=== PATIENT | female | born 1995 | race Caucasian/White ===

== ENCOUNTER 2017-02-26 20:56 | Emergency (ER) | payer BC ==
[2017-02-26 21:06] VITALS: RESP 16; TEMP 98.2
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
[2017-02-26] MEDS ORDERED: IBUPROFEN 600 MG TAB PO ONE ×2 (22:10→22:13)
[2017-02-26 22:17] VITALS: BP 115/49; PULSE 85; O2SAT 96
== END 2017-02-26 22:17 | disposition home or self-care (01) ==
DX: S00.83XA Contusion of other part of head, initial encounter (principal); V18.0XXA Pedal cycle driver injured in noncollision transport accident in nontraffic accident, initial encounter; Y99.8 Other external cause status; Y93.89 Activity, other specified